=== PATIENT | male | born 1990 | race Caucasian/White ===

== ENCOUNTER 2023-05-20 12:10 | Emergency (ER) | payer MEDICAID ==
[~2023-05-20] VITALS: Ht 175.3 cm; Wt 81.6 kg
[2023-05-20 16:00] VITALS: TEMP 97.9
[2023-05-20 16:31] LABS: BASOPHILS % (AUTO) 0.2 % (0.0-2.0); EOSINOPHILS % (AUTO) 0.2 % (0.0-6.0); HEMATOCRIT 45 % (39-51); LYMPHOCYTES # (AUTO) 1.1 K/uL (0.8-4.8); LYMPHOCYTES % (AUTO) 16.2 % (20.0-44.0); MEAN CORPUSCULAR HEMOGLOBIN 30 PG (26.0-33.0); MEAN CORPUSCULAR HGB CONC 33 g/dl (31.0-36.0); MEAN CORPUSCULAR VOLUME 89 fL (80-96); MONOCYTES # (AUTO) 0.5 K/uL (0.1-1.30); MONOCYTES % (AUTO) 7.5 % (2.0-12.0); NEUTROPHILS # (AUTO) 5.3 K/uL (1.8-8.9); NEUTROPHILS % (AUTO) 75.9 % (43.0-81.0); PLATELET COUNT (AUTO) 272 K/uL (150-450); RED BLOOD CELL COUNT(AUTO) 5.06 MIL/uL (4.5-6.0)
[2023-05-20 16:41] LABS: CALCIUM, SERUM 9.5 mg/dL (8.5-10.1); CARBON DIOXIDE 25 mmol/L (21-32); CHLORIDE 101 mmol/L (98-107); CREATININE 0.8 mg/dL (0.6-1.3); GLUCOSE 92 mg/dL (74-106); POTASSIUM 3.7 mmol/L (3.5-5.1); SODIUM SERUM 137 mmol/L (136-145); UREA NITROGEN, BLOOD 6 mg/dL (7-18)
[2023-05-20 18:07] VITALS: BP 125/74; O2SAT 99
== END 2023-05-20 18:02 | disposition home or self-care (01) ==
LOC: ER 12:14
DX: R07.89 Other chest pain (principal); K21.9 Gastro-esophageal reflux disease without esophagitis; F17.200 Nicotine dependence, unspecified, uncomplicated
CPT/HCPCS: 36415; 71045-TC; 80048-TC; 84484-TC; 85025-TC

== ENCOUNTER 2023-05-23 21:28 | Emergency (ER) | payer MEDICAID, OTHER ==
[~2023-05-23] VITALS: Ht 175.3 cm; Wt 79.8 kg
[2023-05-23 23:14] VITALS: TEMP 98.1
[2023-05-23] MEDS ORDERED: IV NS 0.9% 1,000 ML BAG IV ONE (23:30)
[2023-05-23] MEDS ORDERED: IOHEXOL-300 100 ML VIAL IV ONE (23:45)
[2023-05-23] MEDS ORDERED: CT SWABBABLE VALVE TRANS SET 1 EA INFUS.SET MC ONE (23:45)
[2023-05-23] MEDS ORDERED: IV NS 0.9% 250 ML IV ONE (23:45)
[2023-05-23 23:52] LABS: BASOPHILS % (AUTO) 0.5 % (0.0-2.0); EOSINOPHILS % (AUTO) 0.6 % (0.0-6.0); HEMATOCRIT 45 % (39-51); HEMOGLOBIN 15.4 g/dL (13.5-17.5); LYMPHOCYTES # (AUTO) 1.3 K/uL (0.8-4.8); LYMPHOCYTES % (AUTO) 16.3 % (20.0-44.0); MEAN CORPUSCULAR HEMOGLOBIN 30 PG (26.0-33.0); MEAN CORPUSCULAR HGB CONC 34 g/dl (31.0-36.0); MEAN CORPUSCULAR VOLUME 89 fL (80-96); MONOCYTES # (AUTO) 0.7 K/uL (0.1-1.30); MONOCYTES % (AUTO) 8.6 % (2.0-12.0); NEUTROPHILS # (AUTO) 5.8 K/uL (1.8-8.9); PLATELET COUNT (AUTO) 296 K/uL (150-450); WHITE BLOOD COUNT (AUTO) 7.8 K/uL (4.3-11.0)
[2023-05-24 00:04] LABS: CALCIUM, SERUM 9.9 mg/dL (8.5-10.1); CREATININE 0.7 mg/dL (0.6-1.3); POTASSIUM 3.7 mmol/L (3.5-5.1)
[2023-05-24 00:09] LABS: ALBUMIN 4.2 g/dL (3.4-5.0); BILIRUBIN,DIRECT 0.1 mg/dL (0.0-0.2); BILIRUBIN,TOTAL 0.6 mg/dL (0.2-1.0)
[2023-05-24 04:30] VITALS: BP 128/72; O2SAT 99
== END 2023-05-24 04:31 | disposition home or self-care (01) ==
LOC: ER 21:34
DX: R10.9 Unspecified abdominal pain (principal); K21.9 Gastro-esophageal reflux disease without esophagitis
CPT/HCPCS: 99285; 74177; 96360; 85025; 80048; 83690; 80076; 36415; J7030; J7050; Q9967

== ENCOUNTER 2023-06-24 13:18 | Emergency (ER) | payer MEDICAID, OTHER ==
[~2023-06-24] VITALS: Ht 175.3 cm; Wt 82.6 kg
[2023-06-24 13:23] VITALS: TEMP 97.6
[2023-06-24] MEDS ORDERED: ACETAMINOPHEN ES 500 MG TABLET ONE (13:54)
[2023-06-24] MEDS ORDERED: IV NS 0.9% 1,000 ML BAG IV ONE (14:00)
[2023-06-24] MEDS ORDERED: ACETAMINOPHEN ES 500 MG TABLET PO ONE (14:00)
[2023-06-24 14:02] LABS: BASOPHILS % (AUTO) 0.7 % (0.0-2.0); EOSINOPHILS % (AUTO) 0.8 % (0.0-6.0); HEMATOCRIT 45 % (39-51); HEMOGLOBIN 15.2 g/dL (13.5-17.5); LYMPHOCYTES # (AUTO) 1.3 K/uL (0.8-4.8); MEAN CORPUSCULAR HEMOGLOBIN 30 PG (26.0-33.0); MEAN CORPUSCULAR HGB CONC 34 g/dl (31.0-36.0); MEAN CORPUSCULAR VOLUME 90 fL (80-96); MONOCYTES # (AUTO) 0.5 K/uL (0.1-1.30); NEUTROPHILS # (AUTO) 4.3 K/uL (1.8-8.9); NEUTROPHILS % (AUTO) 69.5 % (43.0-81.0); PLATELET COUNT (AUTO) 275 K/uL (150-450); RED BLOOD CELL COUNT(AUTO) 5.06 MIL/uL (4.5-6.0); RED CELL DISTRIBUTION WIDTH 13.1 % (11.5-15.0); WHITE BLOOD COUNT (AUTO) 6.2 K/uL (4.3-11.0)
[2023-06-24 14:16] LABS: CALCIUM, SERUM 9.5 mg/dL (8.5-10.1); CARBON DIOXIDE 30 mmol/L (21-32); CHLORIDE 100 mmol/L (98-107); CREATININE 0.7 mg/dL (0.6-1.3); GLUCOSE 93 mg/dL (74-106); POTASSIUM 4.3 mmol/L (3.5-5.1); SODIUM SERUM 137 mmol/L (136-145); UREA NITROGEN, BLOOD 12 mg/dL (7-18)
[2023-06-24 14:19] LABS: ALANINE AMINOTRANSFERASE 50 U/L (12-78); ALKALINE PHOSPHATASE 65 U/L (46-116); ASPARTATE AMINOTRANSFERASE 17 U/L (15-37); BILIRUBIN,DIRECT 0.1 mg/dL (0.0-0.2); BILIRUBIN,TOTAL 0.3 mg/dL (0.2-1.0); TOTAL PROTEIN, SERUM 7.9 g/dL (6.4-8.2)
[2023-06-24 15:18] VITALS: BP 120/75; O2SAT 98
== END 2023-06-24 15:19 | disposition home or self-care (01) ==
LOC: ER 13:28
DX: R53.1 Weakness (principal); K21.9 Gastro-esophageal reflux disease without esophagitis
CPT/HCPCS: 99285; 96360; 71045; 93005; 85025; 80048; 80076; 36415; 84443; 84484; J7030

== ENCOUNTER 2023-07-08 14:18 | Emergency (ER) | payer OTHER ==
[~2023-07-08] VITALS: Ht 175.3 cm; Wt 82.6 kg
[2023-07-08] MEDS: PROCHLORPERAZINE EDISYLATE 10 MG/2 ML VIAL IVP ONE (18:30)
[2023-07-08] MEDS: ACETAMINOPHEN ES 500 MG TABLET PO ONE (18:30)
[2023-07-08] MEDS: diphenhydrAMINE HCL 50 MG/ML VIAL IV ONE (18:30)
[2023-07-08] MEDS: IV NS 0.9% 1,000 ML BAG IV ONE (18:30)
[2023-07-08] MEDS ORDERED: diphenhydrAMINE HCL 50 MG/ML VIAL ONE (18:54)
[2023-07-08] MEDS ORDERED: PROCHLORPERAZINE EDISYLATE 10 MG/2 ML VIAL ONE (18:55)
[2023-07-08] MEDS ORDERED: ACETAMINOPHEN ES 500 MG TABLET ONE (18:55)
[2023-07-08 19:42] LABS: BASOPHILS % (AUTO) 0.2 % (0.0-2.0); EOSINOPHILS % (AUTO) 0.1 % (0.0-6.0); HEMATOCRIT 45 % (39-51); HEMOGLOBIN 15.3 g/dL (13.5-17.5); LYMPHOCYTES # (AUTO) 1.3 K/uL (0.8-4.8); LYMPHOCYTES % (AUTO) 15.4 % (20.0-44.0); MEAN CORPUSCULAR HEMOGLOBIN 31 PG (26.0-33.0); MEAN CORPUSCULAR HGB CONC 35 g/dl (31.0-36.0); MEAN CORPUSCULAR VOLUME 89 fL (80-96); MONOCYTES # (AUTO) 0.4 K/uL (0.1-1.30); MONOCYTES % (AUTO) 4.3 % (2.0-12.0); NEUTROPHILS # (AUTO) 6.8 K/uL (1.8-8.9); PLATELET COUNT (AUTO) 304 K/uL (150-450); RED BLOOD CELL COUNT(AUTO) 4.99 MIL/uL (4.5-6.0); RED CELL DISTRIBUTION WIDTH 13.2 % (11.5-15.0); WHITE BLOOD COUNT (AUTO) 8.5 K/uL (4.3-11.0)
[2023-07-08 20:01] LABS: CALCIUM, SERUM 9.5 mg/dL (8.5-10.1); CREATININE 0.7 mg/dL (0.6-1.3); POTASSIUM 3.5 mmol/L (3.5-5.1)
[2023-07-08 21:03] VITALS: BP 139/83; TEMP 97.7; O2SAT 97
== END 2023-07-08 21:03 | disposition home or self-care (01) ==
LOC: ER 14:35
DX: R51.9 Headache, unspecified (principal); F41.9 Anxiety disorder, unspecified; R41.89 Other symptoms and signs involving cognitive functions and awareness; K21.9 Gastro-esophageal reflux disease without esophagitis
CPT/HCPCS: 99285; 96374; 70450; 96361; 96375; 85025; 80048; 36415; J0780; J1200; J7030

== ENCOUNTER 2023-07-17 11:00 | Emergency (ER) | payer OTHER ==
[~2023-07-17] VITALS: Ht 175.3 cm; Wt 81.6 kg
[2023-07-17] MEDS ORDERED: KETOROLAC TROMETHAMINE 15 MG/ML VIAL ONE (12:12)
[2023-07-17] MEDS ORDERED: diphenhydrAMINE HCL 50 MG/ML VIAL ONE (12:12)
[2023-07-17] MEDS ORDERED: SUMATRIPTAN SUCCINATE 6 MG/0.5 ML VIAL SQ ONE (12:13)
[2023-07-17] MEDS ORDERED: METOCLOPRAMIDE HCL 10 MG/2 ML VIAL ONE (12:13)
[2023-07-17] MEDS: diphenhydrAMINE HCL 50 MG/ML VIAL IV ONE (12:32)
[2023-07-17] MEDS: SUMATRIPTAN SUCCINATE 6 MG/0.5 ML VIAL SQ ONE (12:32)
[2023-07-17] MEDS: IV NS 0.9% 1,000 ML BAG IV ONE (12:32)
[2023-07-17] MEDS: KETOROLAC TROMETHAMINE 15 MG/ML VIAL IV ONE (12:32)
[2023-07-17] MEDS: METOCLOPRAMIDE HCL 10 MG/2 ML VIAL IV ONE (12:32)
[2023-07-17 12:52] LABS: BASOPHILS % (AUTO) 0.2 % (0.0-2.0); EOSINOPHILS % (AUTO) 0.1 % (0.0-6.0); HEMATOCRIT 45 % (39-51); HEMOGLOBIN 15.4 g/dL (13.5-17.5); LYMPHOCYTES # (AUTO) 0.9 K/uL (0.8-4.8); LYMPHOCYTES % (AUTO) 14.3 % (20.0-44.0); MEAN CORPUSCULAR HEMOGLOBIN 31 PG (26.0-33.0); MEAN CORPUSCULAR HGB CONC 34 g/dl (31.0-36.0); MEAN CORPUSCULAR VOLUME 89 fL (80-96); MONOCYTES # (AUTO) 0.3 K/uL (0.1-1.30); MONOCYTES % (AUTO) 5.1 % (2.0-12.0); NEUTROPHILS % (AUTO) 80.3 % (43.0-81.0); PLATELET COUNT (AUTO) 278 K/uL (150-450); RED BLOOD CELL COUNT(AUTO) 5.03 MIL/uL (4.5-6.0); RED CELL DISTRIBUTION WIDTH 12.8 % (11.5-15.0); WHITE BLOOD COUNT (AUTO) 6.2 K/uL (4.3-11.0)
[2023-07-17 13:05] LABS: INR 1.07 (0.91-1.10); PARTIAL THROMBOPLASTIN TIME 28.8 SEC (24.3-34.3); PROTHROMBIN TIME 11.3 SECS (9.2-11.1)
[2023-07-17 13:35] LABS: CALCIUM, SERUM 9.5 mg/dL (8.5-10.1); CREATININE 0.7 mg/dL (0.6-1.3); POTASSIUM 3.6 mmol/L (3.5-5.1)
[2023-07-17 13:42] LABS: ALBUMIN 4.3 g/dL (3.4-5.0); BILIRUBIN,DIRECT 0.1 mg/dL (0.0-0.2); BILIRUBIN,TOTAL 0.5 mg/dL (0.2-1.0); TOTAL PROTEIN, SERUM 7.8 g/dL (6.4-8.2)
[2023-07-17] MEDS ORDERED: IOHEXOL-350 100 ML VIAL IV ONE (13:45)
[2023-07-17] MEDS ORDERED: IV NS 0.9% 250 ML IV ONE (13:45)
[2023-07-17] MEDS ORDERED: SUMA100T PO (15:03)
[2023-07-17] MEDS ORDERED: KETO10TA2 PO (15:03)
[2023-07-17] MEDS ORDERED: METO-295 PO (15:03)
[2023-07-17 15:42] VITALS: BP 126/94; TEMP 97.9; O2SAT 99
[2023-07-18] MEDS ORDERED: IBUP-2715 PO (18:52)
[2023-07-18] MEDS ORDERED: ASPI-1169 PO (18:52)
== END 2023-07-17 15:43 | disposition home or self-care (01) ==
LOC: ER 11:06
DX: R51.9 Headache, unspecified (principal); K21.9 Gastro-esophageal reflux disease without esophagitis; F41.9 Anxiety disorder, unspecified; F17.200 Nicotine dependence, unspecified, uncomplicated
CPT/HCPCS: 99285; 96374; 70496; 96375; 96361; 85025; 80048; 80076; 36415; 85730; 96372; J1200; J3030; J2765; J7030; J7050; Q9967; J1885

== ENCOUNTER 2023-07-18 14:33 | Inpatient (IN) | payer OTHER ==
[~2023-07-18] VITALS: Ht 175.3 cm; Wt 81.6 kg
[~2023-07-18 14:33] MED LIST: KETO10TA2 PO; METO-295 PO; SUMA100T PO
[2023-07-18 14:55] VITALS: O2SAT 98
[2023-07-18] MEDS ORDERED: METOCLOPRAMIDE HCL 10 MG/2 ML VIAL ONE (17:01)
[2023-07-18] MEDS ORDERED: diphenhydrAMINE HCL 50 MG/ML VIAL ONE (17:01)
[2023-07-18] MEDS ORDERED: ACETAMINOPHEN 325 MG TABLET ONE (17:01)
[2023-07-18] MEDS: IV NS 0.9% 1,000 ML BAG IV ONE (17:10)
[2023-07-18] MEDS: METOCLOPRAMIDE HCL 10 MG/2 ML VIAL IV ONE (17:10)
[2023-07-18] MEDS: diphenhydrAMINE HCL 50 MG/ML VIAL IV ONE (17:10)
[2023-07-18] MEDS: ACETAMINOPHEN 325 MG TABLET PO ONE (17:11)
[2023-07-18] MEDS ORDERED: Magnesium 1GM/D5W 100ML PREMIX 100 ML IV ONE (18:47)
[2023-07-18] MEDS ORDERED: ASPI-1169 PO (18:52)
[2023-07-18] MEDS ORDERED: IBUP-2715 PO (18:52)
[2023-07-18] MEDS: Magnesium 1GM/D5W 100ML PREMIX 100 ML IV ONE (18:53)
[2023-07-18 18:54] LABS: BASOPHILS % (AUTO) 0.3 % (0.0-2.0); EOSINOPHILS % (AUTO) 0.4 % (0.0-6.0); HEMATOCRIT 44 % (39-51); HEMOGLOBIN 14.7 g/dL (13.5-17.5); LYMPHOCYTES # (AUTO) 1.2 K/uL (0.8-4.8); MEAN CORPUSCULAR HEMOGLOBIN 30 PG (26.0-33.0); MEAN CORPUSCULAR HGB CONC 33 g/dl (31.0-36.0); MEAN CORPUSCULAR VOLUME 90 fL (80-96); MONOCYTES # (AUTO) 0.5 K/uL (0.1-1.30); MONOCYTES % (AUTO) 7.8 % (2.0-12.0); NEUTROPHILS % (AUTO) 73.5 % (43.0-81.0); PLATELET COUNT (AUTO) 279 K/uL (150-450); RED BLOOD CELL COUNT(AUTO) 4.88 MIL/uL (4.5-6.0); RED CELL DISTRIBUTION WIDTH 12.7 % (11.5-15.0); WHITE BLOOD COUNT (AUTO) 6.7 K/uL (4.3-11.0)
[2023-07-18 19:02] LABS: CALCIUM, SERUM 9.1 mg/dL (8.5-10.1); CREATININE 0.8 mg/dL (0.6-1.3); POTASSIUM 3.7 mmol/L (3.5-5.1)
[2023-07-18 19:28] LABS: INR 1.04 (0.91-1.10); PARTIAL THROMBOPLASTIN TIME 27.9 SEC (24.3-34.3)
[2023-07-18] MEDS ORDERED: METOCLOPRAMIDE HCL 10 MG/2 ML VIAL IV PRN (20:00)
[2023-07-18] MEDS ORDERED: MAGNESIUM HYDROXIDE 30 ML UDC PO PRN (20:00)
[2023-07-18] MEDS ORDERED: ONDANSETRON HCL/PF 4 MG/2 ML VIAL IVP PRN (20:00)
[2023-07-18] MEDS ORDERED: MAG HYDROX/AL HYDROX/SIMETH 30 ML UDC PO PRN (20:00)
[2023-07-18] MEDS ORDERED: diphenhydrAMINE HCL 50 MG/ML VIAL IV PRN (20:00)
[2023-07-18 21:25] VITALS: BP 133/91; TEMP 98.2; O2SAT 97
[2023-07-18] MEDS: MORPHINE SULFATE INJ 2 MG/ML DISP.SYRIN IV PRN (21:50)
[2023-07-18] MEDS: HYDROCODONE/APAP 5/325MG TABLET PO PRN (23:55)
[2023-07-18] MEDS ORDERED: TDAP [DIPH/PERTUSSIS/TET] 0.5 ML VIAL IM ONE (23:58)
[2023-07-19] MEDS ORDERED: LIDOCAINE 1% INJ 50 ML MDV IJ ONE (00:06)
[2023-07-19] MEDS: IV NS 0.9% 1,000 ML IV PRN (01:18)
[2023-07-19] MEDS: ZOLPIDEM TARTRATE 5 MG TABLET PO PRN (01:56)
[2023-07-19 07:10] LABS: BASOPHILS % (AUTO) 0.5 % (0.0-2.0); EOSINOPHILS # (AUTO) 0.1 K/uL (0.0-0.7); EOSINOPHILS % (AUTO) 1.7 % (0.0-6.0); HEMATOCRIT 44 % (39-51); HEMOGLOBIN 14.8 g/dL (13.5-17.5); LYMPHOCYTES # (AUTO) 1.5 K/uL (0.8-4.8); LYMPHOCYTES % (AUTO) 28.1 % (20.0-44.0); MEAN CORPUSCULAR HEMOGLOBIN 31 PG (26.0-33.0); MEAN CORPUSCULAR HGB CONC 34 g/dl (31.0-36.0); MEAN CORPUSCULAR VOLUME 90 fL (80-96); MONOCYTES # (AUTO) 0.5 K/uL (0.1-1.30); MONOCYTES % (AUTO) 9.4 % (2.0-12.0); NEUTROPHILS # (AUTO) 3.2 K/uL (1.8-8.9); NEUTROPHILS % (AUTO) 60.3 % (43.0-81.0); PLATELET COUNT (AUTO) 278 K/uL (150-450); RED BLOOD CELL COUNT(AUTO) 4.85 MIL/uL (4.5-6.0); RED CELL DISTRIBUTION WIDTH 12.7 % (11.5-15.0); WHITE BLOOD COUNT (AUTO) 5.3 K/uL (4.3-11.0)
[2023-07-19 07:33] LABS: CALCIUM, SERUM 9.4 mg/dL (8.5-10.1); CREATININE 0.8 mg/dL (0.6-1.3); MAGNESIUM 2.5 mg/dL (1.8-2.4); PHOSPHORUS 4.4 mg/dL (2.5-4.9); POTASSIUM 3.5 mmol/L (3.5-5.1)
[2023-07-19 08:11] VITALS: BP 133/83; TEMP 98.6; O2SAT 99
[2023-07-19] MEDS: PANTOPRAZOLE 40 MG TABLET.DR PO SCH (08:36)
[2023-07-19] MEDS: SUMATRIPTAN SUCCINATE 25 MG TABLET PO ONE (10:08)
[2023-07-19] MEDS: diphenhydrAMINE HCL 50 MG/ML VIAL IV PRN (10:08)
[2023-07-19] MEDS: KETOROLAC TROMETHAMINE 15 MG/ML VIAL IV PRN (10:08)
[2023-07-19] MEDS: IV NS 0.9% 1,000 ML BAG IV ONE (11:14)
[2023-07-19 15:59] VITALS: BP 134/94; TEMP 98.5; O2SAT 99
[2023-07-19 18:25] LABS: THYROID STIMULATING HORMONE 1.848 uIU/mL (0.358-3.74)
[2023-07-19 21:02] VITALS: BP 132/103; TEMP 98.4; O2SAT 96
[2023-07-19] MEDS ORDERED: SUMATRIPTAN SUCCINATE 25 MG TABLET ONE (22:22)
[2023-07-19] MEDS: SUMATRIPTAN SUCCINATE 25 MG TABLET PO PRN (22:26)
[2023-07-20 05:11] VITALS: BP 135/96; TEMP 97.9; O2SAT 98
[2023-07-20 07:30] VITALS: BP 140/91; TEMP 97.9; O2SAT 97
[2023-07-20] MEDS: HYDROCODONE/APAP 10/325MG TABLET PO PRN (08:01)
[2023-07-20] MEDS ORDERED: GADOTERATE MEGLUMINE 10 MMOL/20 ML VIAL IV ONE (12:56)
[2023-07-20 16:00] VITALS: BP 130/90; TEMP 98.2; O2SAT 100
[2023-07-20] MEDS: ACETAMINOPHEN 325 MG TABLET PO PRN (18:23)
[2023-07-20 20:00] VITALS: BP 134/84; TEMP 97.9; O2SAT 99
[2023-07-21] VITALS: BP 131/99; TEMP 97.9; O2SAT 97
[2023-07-21 04:00] VITALS: BP 128/91; TEMP 98; O2SAT 96
[2023-07-21 08:00] VITALS: BP 117/79; TEMP 98.2; O2SAT 97
[2023-07-21] MEDS: ESCITALOPRAM OXALATE (10 MG) 10 MG TABLET PO SCH (08:01)
[2023-07-21] MEDS: QUETIAPINE FUMARATE 100 MG TABLET PO SCH (08:01)
[2023-07-21 12:00] VITALS: BP 92/68; TEMP 98.6; O2SAT 98
[2023-07-21 20:00] VITALS: BP 124/79; TEMP 97.8; O2SAT 96
[2023-07-21 20:22] LABS: AMPHETAMINE, URINE NEGATIVE (NEGATIVE); BARBITURATE, URINE NEGATIVE (NEGATIVE); BENZODIAZEPINE, URINE NEGATIVE (NEGATIVE); CANNABINOID, URINE NEGATIVE (NEGATIVE); COCCAINE, URINE NEGATIVE (NEGATIVE); PHENCYCLIDINE SCREEN,URINE NEGATIVE (NEGATIVE)
[2023-07-21 20:24] LABS: OPIATE, URINE POSITIVE (NEGATIVE)
[2023-07-22] VITALS: BP 127/81; TEMP 98.1; O2SAT 100
[2023-07-22 07:00] VITALS: BP 129/92; TEMP 97.9; O2SAT 97
[2023-07-22] MEDS ORDERED: TRAZ-257 PO (12:47)
[2023-07-22] MEDS ORDERED: SUMA50TA PO (12:47)
[2023-07-22] MEDS ORDERED: QUET100T PO (12:47)
[2023-07-22] MEDS ORDERED: ESCI10TA PO (12:47)
== END 2023-07-22 13:30 | DRG 54 ==
LOC: ER 14:36 → MED 21:06 → TELE 07-19 09:13 → MED 07-22 13:26
PROVIDERS: ATTEND Nurse Practitioner Acute Care
DX: G43.909 Migraine, unspecified, not intractable, without status migrainosus (principal); F19.159 Other psychoactive substance abuse with psychoactive substance-induced psychotic disorder, unspecified; F32.9 Major depressive disorder, single episode, unspecified; F41.9 Anxiety disorder, unspecified; K21.9 Gastro-esophageal reflux disease without esophagitis; Z79.82 Long term (current) use of aspirin; Z79.899 Other long term (current) drug therapy; R44.0 Auditory hallucinations; G47.00 Insomnia, unspecified; Z20.822 Contact with and (suspected) exposure to COVID-19
CPT/HCPCS: 36415; 70553-TC; 80048-TC; 80061-TC; 82607-TC; 83735-TC; 83921; 84100-TC; 84443-TC; 85025-TC; 85730-TC; 90715; A4223; A9575; G0378; J1200; J1885; J2270; J2765; J3475; J3490; J7030; L0172